=== PATIENT | female | born 1975 | race Caucasian/White ===

== ENCOUNTER 2023-10-30 22:09 | Emergency (ER) | payer OTHER ==
[~2023-10-30] VITALS: Ht 165.1 cm; Wt 83.9 kg
[2023-10-30 22:15] VITALS: BP_SYST 146; PULSE 110; RESP 18; TEMP 97.3; O2SAT 97
[2023-10-30 22:43] VITALS: TEMP 97.3
[2023-10-30] MEDS: cefTRIAXone 1 GM in LIDOCAINE 1%, 20 ML MDV 2.1 ML IM ONE (23:10)
[2023-10-30] MEDS ORDERED: CALA TP (23:37)
[2023-10-30] MEDS ORDERED: LORA10TA7 PO (23:37)
[2023-10-30] MEDS ORDERED: SULF1TAB48 PO (23:37)
[2023-10-30 23:55] VITALS: BP_SYST 125; PULSE 80; RESP 18; O2SAT 99
== END 2023-10-30 23:53 | disposition home or self-care (01) ==
LOC: SED 22:09
DX: L03.116 Cellulitis of left lower limb (principal); Z79.899 Other long term (current) drug therapy; Z79.2 Long term (current) use of antibiotics
CPT/HCPCS: 99283; 96372; J0696; J2001